=== PATIENT | male | born 1990 | race Caucasian/White ===

== ENCOUNTER 2018-05-17 09:51 | Emergency (ER) | payer MEDICAID ==
[~2018-05-17] VITALS: Ht 152.4 cm; Wt 50.4 kg
[2018-05-17 10:13] VITALS: Ht 152.4 cm; Wt 50.4 kg
[2018-05-17 11:22] LABS: BASOPHIL % 0.8 % (0-2); PLATELET COUNT 142 x10^3mcL (130-400)
[2018-05-17 11:30] LABS: CALCIUM 8.7 mg/dL (8.5-10.1); CHLORIDE SERUM 103 mmol/L (98-107); CREATININE SERUM 0.8 mg/dL (0.7-1.3); GFR1 > 60 mL/min; GLUCOSE SERUM 96 mg/dL (74-106); POTASSIUM SERUM 4.3 mmol/L (3.5-5.1); SODIUM SERUM 137 mmol/L (136-145)
[2018-05-17 11:31] LABS: AMYLASE 50 U/L (25-115); LIPASE 151 IU/L (73-393)
[2018-05-17 12:07] LABS: microscopic required? NO
[2018-05-17 12:15] LABS: urine erythrocyte NEGATIVE (NEGATIVE)
[2018-05-17 13:37] VITALS: BP 115/60
== END 2018-05-17 13:37 | disposition home or self-care (01) ==
LOC: ED 09:51
PROVIDERS: Emergency Medicine
DX: K59.00 Constipation, unspecified (principal)
CPT/HCPCS: 36415

== ENCOUNTER 2019-01-13 10:43 | Emergency (ER) | payer OTHER ==
[~2019-01-13] VITALS: Ht 152.4 cm; Wt 49.2 kg
[2019-01-13 10:56] VITALS: Ht 152.4 cm; Wt 49.2 kg
[2019-01-13 12:50] VITALS: BP 131/65
== END 2019-01-13 12:50 | disposition home or self-care (01) ==
LOC: ED 10:43
DX: S61.012A Laceration without foreign body of left thumb without damage to nail, initial encounter (principal); W22.8XXA Striking against or struck by other objects, initial encounter; Y93.89 Activity, other specified; Y92.89 Other specified places as the place of occurrence of the external cause; Y99.8 Other external cause status